=== PATIENT | female | born 1955 | race Caucasian/White ===

== ENCOUNTER 2020-09-03 18:27 | Emergency (ER) | payer OTHER ==
--- NOTE | 2020-09-03 19:28 | RAD REPORT ---
EXAM DESCRIPTION: CT - Head Brain Wo Cont - 09/03/2020 7:17 pm CLINICAL HISTORY: DIZZINESS, hypertension COMPARISON: HEAD BRAIN W O CONTRAST dated 09/13/2007 TECHNIQUE: Axial 5 mm thick images of the head were obtained without IV contrast. All CT scans are performed using dose optimization technique as appropriate and may include automated exposure control or mA/KV adjustment according to patient size. FINDINGS: No intracranial hemorrhage, mass, edema or shift of mid-line structures. No acute infarcti on changes seen. No significant atrophy chronic ischemic change. Physiologic calcifications are prese nt. Ventricles are normal. Mastoid air cells and visualized portions of the paranasal sinuses are clear. No acute bony findings. Significant left deviation of nasal septum present. No significant change from comparison. IMPRESSION: Negative non-contrast CT head examination.
--- NOTE | 2020-09-03 19:29 | RAD REPORT ---
EXAM DESCRIPTION: RAD - Chest Single View - 09/03/2020 7:20 pm CLINICAL HISTORY: DYSPNEA COMPARISON: March 2000 TECHNIQUE: AP portable chest image was obtained 09/03/2020 7:20 pm . FINDINGS: Lungs are clear of acute infiltrate or mass. Stable granuloma at the right base. No new sandi ng parenchymal process. Interstitial pattern matches comparison. Heart and vasculature are normal. No measurable pleural effusion and no pneumothorax. No acute bony abnormality seen. No acute aortic fin dings suspected. IMPRESSION: No acute cardiopulmonary process. No significant interval change.
[2020-09-03 19:53] LABS: Absolute Lymphocytes (CBC) 2.7 K/uL (0.7-4.9); Basophils % 0.8 % (0-1.3); Hematocrit 40.4 % (36.0-45.0); Lymphocytes % 32.8 % (15.3-44.8); MPV 6.3 fL (7.6-11.3); RBC Red Blood Cell Count 4.42 M/uL (3.86-4.86)
[2020-09-03 19:54] LABS: Protime INR 0.99
[2020-09-03 20:20] LABS: ALT/SGPT 34 U/L (12-78); AST/SGOT 22 U/L (15-37); Albumin 3.8 g/dL (3.4-5.0); Alkaline Phosphatase 102 U/L (45-117); BUN Blood Urea Nitrogen 19 mg/dL (7-18); Bicarbonate 26 mmol/L (21-32); Bilirubin Direct 0.1 mg/dL (0-0.2); Bilirubin Total 0.4 mg/dL (0.2-1.0); Glucose Level 104 mg/dL (74-106); Magnesium 2.3 mg/dL (1.8-2.4); NT PRO-BNP 48 pg/mL (<125); Potassium 3.7 mmol/L (3.5-5.1); Sodium Level 144 mmol/L (136-145); Troponin (Emerg Dept Use Only) < 0.02 ng/mL (0.0-0.045)
--- NOTE | 2020-09-03 20:54 | ER ---
Nurse's Notes [facility] Name: Kaylah Hooper Age: 65 yrs Sex: Female : 1955 Arrival Date: 09/03/2020 Time: 18:29 Bed 15 Private MD: Diagnosis: Dizziness Presentation: 09/03 18:30 Chief complaint: Patient states: intermittent dizziness, lightheaded x 2 weeks. 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 Coronavirus screen: Client denies travel out of the [place] in the last 14 days. At this time, the client does not indicate any symptoms associated with coronavirus-19. Ebola Screen: No symptoms or risks identified at this time. Risk Assessment: Do you want to hurt yourself or someone else? Patient reports no desire to harm self or others. Onset of symptoms was August 2020. 18:30 Method Of Arrival: Ambulatory sv 18:30 Acuity: BRIAN 2 sv 18:33 Initial Sepsis Screen: Does the patient meet any 2 criteria? No. Patient's initial sv sepsis screen is negative. Does the patient have a suspected source of infection? No. Patient's initial sepsis screen is negative. Triage Assessment: 18:35 General: Appears in no apparent distress. comfortable, Behavior is calm, cooperative, sv appropriate for age. Pain: Denies pain. Neuro: Level of Consciousness is awake, alert, obeys commands, Oriented to person, place, time, situation. Respiratory: Respiratory effort is even, unlabored. Historical: - Allergies: 18:33 No Known Allergies; sv - PMHx: 18:33 Breast cancer; High Cholesterol; Hypertension; sv - PSHx: 18:33 Cholecystectomy; Tubal ligation; sv - Immunization history:: Adult Immunizations up to date. - Social history:: Smoking status: Patient denies any tobacco usage or history of. Screenin:00 Abuse screen: Denies threats or abuse. Nutritional screening: No deficits noted. jb4 Tuberculosis screening: No symptoms or risk factors identified. Fall Risk None identified. Assessment: 19:00 General: Appears in no apparent distress. comfortable, Behavior is calm, cooperative, jb4 appropriate for age. Pain: Denies pain. Neuro: Level of Consciousness is awake, alert, obeys commands, Oriented to person, place, time, situation. Cardiovascular: Respiratory: Airway is patent Respiratory effort is even, unlabored, Respiratory pattern is regular, symmetrical. GI: No signs and/or symptoms were reported involving the gastrointestinal system. : No signs and/or symptoms were reported regarding the genitourinary system. EENT: No signs and/or symptoms were reported regarding the EENT system. Derm: Skin is intact, Skin is pink, warm \T\ dry. Musculoskeletal: Circulation, motion, and sensation intact. Range of motion: intact in all extremities. 20:00 Reassessment: Patient appears in no apparent distress at this time. Patient and/or jb4 family updated on plan of care and expected duration. Pain level reassessed. Patient is alert, oriented x 3, equal unlabored respirations, skin warm/dry/pink. 21:10 Reassessment: Patient appears in no apparent distress at this time. Patient and/or jb4 family updated on plan of care and expected duration. Pain level reassessed. Patient is alert, oriented x 3, equal unlabored respirations, skin warm/dry/pink. Vital Signs: 18:33 BP 179 / 70; Pulse 68; Resp 16; Temp 98.8; Pulse Ox 100% ; Weight 92.99 kg; Height 5 sv ft. 7 in. (170.18 cm); 20:00 BP 170 / 72; Pulse 76; Resp 16; Pulse Ox 96% on R/A; jb4 21:00 BP 159 / 88; Pulse 76; Resp 16; Pulse Ox 98% on R/A; jb4 18:33 Body Mass Index 32.11 (92.99 kg, 170.18 cm) sv ED Course: 18:29 Patient arrived in ED. ds1 18:30 Arm band placed on. sv 18:32 Triage completed. sv 18:49 Elie Martínez PA is PHCP. jr8 18:49 Jose Mcclellan MD is Attending Physician. jr8 19:00 Patient has correct armband on for positive identification. Bed in low position. Call jb4 light in reach. Side rails up X 1. Pulse ox on. NIBP on. 19:15 David Arguelles, GILBERTO is Primary Nurse. jb4 19:15 CT Head Brain wo Cont In Process Unspecified. EDMS 19:18 XRAY Chest (1 view) In Process Unspecified. EDMS 19:38 Initial lab(s) drawn, by me, sent to lab. Inserted saline lock: 20 gauge in right jb4 antecubital area, using aseptic technique. Blood collected. 20:53 Jerome Delgado MD is Referral Physician. jr8 21:10 No provider procedures requiring assistance completed. IV discontinued, intact, jb4 bleeding controlled, No redness/swelling at site. Pressure dressing applied. Administered Medications: No medications were administered Outcome: 20:53 Discharge ordered by . jr8 21:10 Discharged to home ambulatory, with family. jb4 21:10 Condition: stable 21:10 Discharge instructions given to patient, Instructed on discharge instructions, follow up and referral plans. medication usage, Demonstrated understanding of instructions, follow-up care, medications, Prescriptions given X 1. 21:11 Patient left the ED. jb4 Signatures: Dispatcher [employer] EDMS Maria Garcia, RN RN Lynn Lu ds1 Elie Martínez PA PA jr8 David Arguelles, RN RN jb4 Corrections: (The following items were deleted from the chart) 18:36 18:30 Acuity: BRIAN 3 sv sv 18:36 18:33 Pulse 68bpm; Resp 16bpm; Pulse Ox 100%; Temp 98.8F; 92.99 kg; Height 5 ft. 7 in.; sv BMI: 32.1; sv
--- NOTE | 2020-09-03 20:55 | EDPHYS ---
Physician Documentation [facility] Name: Kaylah Hooper Age: 65 yrs Sex: Female : 1955 Arrival Date: 09/03/2020 Time: 18:29 Bed 15 Private MD: Jose Ziegler HPI: 09/03 19:11 This 65 yrs old Female presents to ER via Ambulatory with complaints of jr8 Dizziness. 19:11 The patient presents for dizziness x 1.5 weeks. The patient describes the dizziness as jr8 intermittent, and mainly when she is sitting up. States that position changes do not worsen her symptoms. Denies taking any medications for symptom relief. Denies visual changes, syncope, N/V, chest pain, fever, or any other symptoms at this time.. Historical: - Allergies: 18:33 No Known Allergies; sv - PMHx: 18:33 Breast cancer; High Cholesterol; Hypertension; sv - PSHx: 18:33 Cholecystectomy; Tubal ligation; sv - Immunization history:: Adult Immunizations up to date. - Social history:: Smoking status: Patient denies any tobacco usage or history of. ROS: 19:26 Eyes: Negative for injury, pain, redness, and discharge, ENT: Negative for injury, jr8 pain, and discharge, Neck: Negative for injury, pain, and swelling, Cardiovascular: Negative for chest pain, palpitations, and edema, Respiratory: Negative for shortness of breath, cough, wheezing, and pleuritic chest pain, Abdomen/GI: Negative for abdominal pain, nausea, vomiting, diarrhea, and constipation, Back: Negative for injury and pain, MS/Extremity: Negative for injury and deformity, Skin: Negative for injury, rash, and discoloration. 19:26 Neuro: Positive for dizziness. Exam: 19:26 Eyes: Pupils equal round and reactive to light, extra-ocular motions intact. Lids and jr8 lashes normal. Conjunctiva and sclera are non-icteric and not injected. Cornea within normal limits. Periorbital areas with no swelling, redness, or edema. ENT: Nares patent. No nasal discharge, no septal abnormalities noted. Tympanic membranes are normal and external auditory canals are clear. Oropharynx with no redness, swelling, or masses, exudates, or evidence of obstruction, uvula midline. Mucous membranes moist. Neck: Trachea midline, no thyromegaly or masses palpated, and no cervical lymphadenopathy. Supple, full range of motion without nuchal rigidity, or vertebral point tenderness. No Meningismus. Cardiovascular: Regular rate and rhythm with a normal S1 and S2. No gallops, murmurs, or rubs. Normal PMI, no JVD. No pulse deficits. Respiratory: Lungs have equal breath sounds bilaterally, clear to auscultation and percussion. No rales, rhonchi or wheezes noted. No increased work of breathing, no retractions or nasal flaring. Abdomen/GI: Soft, non-tender, with normal bowel sounds. No distension or tympany. No guarding or rebound. No evidence of tenderness throughout. Back: No spinal tenderness. No costovertebral tenderness. Full range of motion. Skin: Warm, dry with normal turgor. Normal color with no rashes, no lesions, and no evidence of cellulitis. MS/ Extremity: Pulses equal, no cyanosis. Neurovascular intact. Full, normal range of motion. Neuro: Awake and alert, GCS 15, oriented to person, place, time, and situation. Cranial nerves II-XII grossly intact. Motor strength 5/5 in all extremities. Sensory grossly intact. Cerebellar exam normal. Normal gait. Vital Signs: 18:33 BP 179 / 70; Pulse 68; Resp 16; Temp 98.8; Pulse Ox 100% ; Weight 92.99 kg; Height 5 sv ft. 7 in. (170.18 cm); 20:00 BP 170 / 72; Pulse 76; Resp 16; Pulse Ox 96% on R/A; jb4 21:00 BP 159 / 88; Pulse 76; Resp 16; Pulse Ox 98% on R/A; jb4 18:33 Body Mass Index 32.11 (92.99 kg, 170.18 cm) sv MDM: 18:50 Patient medically screened. [facility] 20:53 Data reviewed: vital signs, nurses notes, lab test result(s), EKG, radiologic studies, [facility] CT scan. Data interpreted: Pulse oximetry: on room air is 96 %. Interpretation: normal. Counseling: I had a detailed discussion with the patient and/or guardian regarding: the historical points, exam findings, and any diagnostic results supporting the discharge/admit diagnosis, lab results, radiology results, the need for outpatient follow up, a family practitioner, a neurologist, to return to the emergency department if symptoms worsen or persist or if there are any questions or concerns that arise at home. Response to treatment: the patient's symptoms have mildly improved after treatment. 09/03 18:50 Order name: Basic Metabolic Panel; Complete Time: 20:52 09/03 18:50 Order name: CBC with Diff; Complete Time: 20:00 09/03 18:50 Order name: LFT's; Complete Time: 20:52 09/03 18:50 Order name: Magnesium; Complete Time: 20:52 09/03 18:50 Order name: NT PRO-BNP; Complete Time: 20:52 09/03 18:50 Order name: PT-INR; Complete Time: 20:00 09/03 18:50 Order name: Troponin (emerg Dept Use Only); Complete Time: 20:52 09/03 18:50 Order name: XRAY Chest (1 view); Complete Time: 19:36 09/03 18:50 Order name: EKG; Complete Time: 18:51 09/03 18:50 Order name: Cardiac monitoring; Complete Time: 19:57 09/03 18:50 Order name: EKG - Nurse/Tech; Complete Time: 19:57 09/03 18:50 Order name: IV Saline Lock; Complete Time: 19:57 09/03 18:50 Order name: Labs collected and sent; Complete Time: 19:58 09/03 18:50 Order name: CT Head Brain wo Cont; Complete Time: 19:36 09/03 18:50 Order name: O2 Per Protocol; Complete Time: 19:18 09/03 18:50 Order name: O2 Sat Monitoring; Complete Time: 19:18 Administered Medications: No medications were administered Disposition: 09/04 06:26 Co-signature as Attending Physician, Jose Mcclellan MD I agree with the assessment and luz plan of care. Disposition: 09/03/20 20:53 Discharged to Home. Impression: Dizziness . - Condition is Stable. - Discharge Instructions: Dizziness. - Prescriptions for Meclizine 25 mg Oral Tablet - take 1 tablet by ORAL route every 8 hours As needed; 30 tablet. - Medication Reconciliation Form, Thank You Letter, Antibiotic Education, Prescription Opioid Use form. - Follow up: Jerome Delgado MD; When: 1 week; Reason: Recheck today's complaints, Continuance of care, Re-evaluation by your physician. - Problem is new. - Symptoms have improved. Signatures: Dispatcher [employer] EDMS Maria Garcia RN RN Jose Rebollar MD MD cha Roszak, Josh, PA PA jr8 David Arguelles RN RN jb4 Corrections: (The following items were deleted from the chart) 09/03 21:11 20:53 09/03/2020 20:53 Discharged to Home. Impression: Dizziness . Condition is Stable. jb4 Forms are Medication Reconciliation Form, Thank You Letter, Antibiotic Education, Prescription Opioid Use. Follow up: Jerome Delgado; When: 1 week; Reason: Recheck today's complaints, Continuance of care, Re-evaluation by your physician. Problem is new. Symptoms have improved. jr8
[2020-09-03 21:22] VITALS: TEMP 98.8
[2020-09-03 21:25] VITALS: BP 159/88; O2SAT 98
--- NOTE | 2020-09-05 07:18 | EKG ---
Test Date: 2020-09-03 Test Time: 19:26:07 Junior Software Engineer: JIA MEASUREMENT RESULTS: Intervals: Rate: 71 SC: 184 QRSD: 96 QT: 376 QTc: 408 [place]: P: 78 SC: 184 QRS: 78 T: 76 INTERPRETIVE STATEMENTS: Normal sinus rhythm Normal ECG Compared to ECG 09/13/2007 08:06:57 Sinus arrhythmia no longer present Electronically Signed On 09-05-20 07:16:22 BLAST FURNACE TENDER by Tommy Drew
== END 2020-09-03 21:11 | disposition home or self-care (01) ==
LOC: ER 18:27
DX: R42 Dizziness and giddiness (principal); I10 Essential (primary) hypertension; Z85.3 Personal history of malignant neoplasm of breast
CPT/HCPCS: 36415; 70450; 71045; 80048; 80076; 83735; 83880; 84484; 85025; 85610; 93005; 99284